=== PATIENT | female | born 1980 | race Caucasian/White ===

== ENCOUNTER → 2021-04-04 16:56 | Outpatient (CLI) | payer OTHER, SELFPAY | PROVIDERS: PCP Family Medicine; Visit Provider Nurse Practitioner | DX: Z20.822 Contact with and (suspected) exposure to COVID-19 (principal) | CPT/HCPCS: C9803; U0003; U0005 ==

== ENCOUNTER 2021-04-20 16:13 | Emergency (ER) | payer SELFPAY ==
[2021-04-20 16:15] VITALS: BP 138/79; PULSE 88; RESP 18; TEMP 36.8; O2SAT 97; BMI 30.5
--- NOTE | 2021-04-20 16:36 | HMH.EDUTC ---
[facility] [place] Clinical Impression: URI (upper respiratory infection) Qualifiers: URI type: unspecified URI Qualified Code(s): J06.9 - Acute upper respiratory infection, unspecified Disposition: Home, Self-Care Condition on Discharge: Good Instructions: Sore Throat, DI for Sinusitis, DI for COVID-19 (Suspected or Confirmed ), Preventing the Spread of Coronavirus Discharge Instructions Additional Instructions: *Monitor Temp, Over the counter Motrin or Tylenol as directed/as needed Tylenol every 4 hours and Motrin every 6 hours (as long as your family doctor has told you that you can take it) for fever or pain. and straight to ER if unable to lower temp less than 101.0 after medication given *Warm salt water gargles may help to soothe the throat *Throat Lozenges *Warm fluids like tea with honey may help to soothe the throat *Sleep elevated *Humidifier/Vaporizer *Flonase 2 sprays in each nostril daily but be aware that it may take 2-3 days before you notice improvement Take your medication as prescribed Return if needed Follow up IMMEDIATELY for new or worsening symptoms or no Noticeable improvement over the next 48-72 hours. 911 for difficulty breathing or swallowing You were tested for today for COVID19 your test result should be back in the next 24-48 hours, you was given handout to log on [facility] portal to get your results if you have issues logging on you can call [facility] You was given a handout with instructions for Self Quarantine and Self isolation for while you wait on test results and what to do if they are positive If you are positive the Health Dept will be contacting you also Make sure to take your Vitamins Vit. C Vit D and Zinc if you can take them Prescriptions: methylPREDNISolone [Medrol 4mg tab] 4 mg PO DIRECTED #21 tab Transmission Status: Pending to [facility] # Azithromycin [Z-Chiki 250mg Tab*] 250 mg PO UD DOSE PK #6 tab Transmission Status: Pending to [facility] # Referrals: Ranjit Chester MD [Primary Care Provider] - As needed Forms: Work/School Release Time of Disposition: 16:41 Medical Decision Making - Zachary Inquiry Pt receiving controlled substance: No Zachary was queried for this patient: No Vital Signs: 04/20/21 16:15 Temperature 98.2 F Temperature Source Oral Pulse Rate [Right Brachial] 88 Respiratory Rate 18 Blood Pressure [Right Arm] 138/79 Blood Pressure Mean [Right Arm] 98 Blood Pressure Source [Right Arm] Automatic Cuff Blood Pressure Position [Right Arm] Sitting 02 Sat by Pulse Oximetry 97 Oxygen Delivery Method Room Air Orders (Tests/Meds): ORDERS Category Date Time Status Covid-19 Nasal PCR ([facility]) Routine Lab 04/20/21 16:34 Ordered [facility] [place] - General Stated complaint: Allergies, covid swab Time Seen by Provider: 04/20/21 16:36 Mode of Arrival: Ambulatory Source of Information: Patient Limitations: No Limitations Description of Symptoms (Recalled from Triage Doc. by RN): PATIENT C/O COUGH AND CONGESTION X 3 DAYS. DAUGHTER RECENTLY TESTED POSITIVE FOR COVID HEENT Symptoms (Recalled from RN notes): Yes Resp Symptoms (Recalled from RN notes): Yes Skin Symptoms (Recalled from RN notes): No MS Symptoms (Recalled from RN notes): No Functional Status (Recalled from RN notes): WNL - History of Present Illness Provider Complaint: Patient states that she has been having cough and congestion along with sinus congestion and pressure for about 4-5 days States that daughter recently tested positive for COVID and they live in the same house but she has not been around her States that today she wasnt feeling any better so [facility] came in to get checked - Related Data Previous Rx's Medication Instructions Recorded Azithromycin [Z-Chiki 250mg Tab*] 250 mg PO UD DOSE PK #6 tab 04/20/21 methylPREDNISolone [Medrol 4mg 4 mg PO DIRECTED #21 tab 04/20/21 tab] Allergies Allergy/AdvReac Type Severity Reaction Status Date / Time
[2021-04-20 16:52] VITALS: BP 138/79; PULSE 88; RESP 18; TEMP 36.8; O2SAT 97
== END 2021-04-20 16:53 | disposition home or self-care (01) ==
PROVIDERS: Emergency Provider Nurse Practitioner; PCP Family Medicine
DX: J06.9 Acute upper respiratory infection, unspecified (principal); Z20.822 Contact with and (suspected) exposure to COVID-19
CPT/HCPCS: 99202; C9803; G0463; U0003; U0005

== ENCOUNTER 2023-03-26 06:03 | Day surgery (SDC) | payer BC, SELFPAY ==
[2023-03-21 15:27] VITALS: BMI 30.2
[2023-03-26] VITALS (10 sets, daily range): BP systolic 109–126; BP diastolic 57–88; PULSE 67–84; RESP 14–18; TEMP 36.6–43; O2SAT 99–100
[2023-03-26 06:48] LABS: Basophils % 0.2 % (0.1-2.0); Eosinophils # 0.1 K/mm3 (0.0-0.4); Eosinophils % 1.6 % (0.1-12.0); Hematocrit 45.2 % (37.0-47.0); Hemoglobin 14.1 g/dL (12.2-16.2); Lymphocytes # 1.6 K/mm3 (0.7-4.5); Lymphocytes % 20.2 % (10-50); Mean Corpuscular HGB Conc 31.2 g/dL (31.8-35.4); Mean Corpuscular Hemoglobin 29.1 pg (27.0-31.2); Mean Corpuscular Volume 93.5 fl (81-99); Mean Platelet Volume 8.1 fl (7.4-10.4); Monocytes # 0.5 K/mm3 (0.1-1.0); Monocytes % 6.1 % (1.7-9.3); Neutrophils # 5.8 K/mm3 (1.8-7.8); Neutrophils % 71.9 % (37.0-80.0); Platelet Count 255 K/mm3 (142-424); Red Blood Count 4.84 M/mm3 (4.20-5.40); Red Cell Distribution Width 13.6 % (11.5-17.5); Urine Pregnancy, HCG Qual. Negative (Negative)
--- NOTE | 2023-03-26 06:59 | EXP.ANES.CKL ---
[facility] Disclaimer: The information contained in this section may have been updated after the patient was seen, as this information can be updated by other users. Medical History History of breast cancer Surgical History History of bilateral mastectomy History of placement of ear tubes History of tonsillectomy and adenoidectomy History of tubal ligation Family History (Updated 03/26/23 @ 06:36 by Samantha Crawley RN) Other Breast cancer Social History (Updated 03/26/23 @ 06:37 by Samantha Crawley RN) Smoking Status: Never smoker alcohol intake: never substance use type: denies use current occupational status: employed Travel in the last 8 weeks: None [facility] Anesthesia Checklist Patient Identification Patient Identification: Arm Band and Family Structural Data Admitted From: Home Planned Operative Procedure/s: Excision lipoma right shoulder Consent for Planned Operative Procedure(s) Verified: Yes Verified Documents: Surgical Consent and History and Physical NPO Status Verified Time NPO: 00:00 Additional verifications Patient : No Anesthesia Reactions: No Hx Blood Transfusions: No Blood Transfusion Reaction: No Cephalosporin Allergy: No Previous Colonoscopy: No Airway Assessment Mallampati Score:: Class I C-Spine Mobility Assessed: Yes TMJ Mobility Assessed: Yes Dentition: Good Dentition Neurological Assessment Level of Consciousness: Awake, Alert, Appropriate and Follows Commands Anesthesia Plan Anesthesia Risk discussed: Yes ASA Class: I Anesthesia Type: General Preoperative Comments Pre-Operative Comments: Bilateral mastectomy.
[2023-03-26 07:00] LABS: Anion Gap 13.8 mEq/L (5-15); Blood Urea Nitrogen 22 mg/dl (7-17); Calcium 8.8 mg/dl (8.4-10.2); Carbon Dioxide 24 mmol/L (22.0-30.0); Chloride 108 mmol/L (98-107); Creatinine Clearance Estimated 104 mL/min (50-200); Estimated Glomerular Filt Rate 68 ml/min (>60); GFR (African American) 82 ML/MIN (>60); Glucose 102 mg/dl (74-100); Potassium 3.8 mmoL/L (3.5-5.1); Sodium 142 mmol/L (136-145)
--- NOTE | 2023-03-26 07:46 | EXP.OP.NOTE ---
Date of procedure: 03/26/23 Pre-op Diagnosis:: Right shoulder lipoma Post-op Diagnosis:: Same Procedure performed:: Excision of lipoma posterior right shoulder (excisional length approximately 3 cm) with intermediate complexity closure Surgeon:: Chad Goodwin MD Anesthesia: LMA Estimated blood loss (mL): 5 Clinical Note:: Patient is a pleasant 42-year-old female referred for lump on right shoulder . She had noticed a knot on the right posterior deltoid area several months ago. She denies pain. She is concerned about this as there is a family history of cancers. In the preoperative area the patient did ask about possibility of having axillary adenopathy from this lesion. It was felt rather unlikely. Examination in the preoperative area did reveal what appeared to be palpable tender lymph node in the right axilla. Patient had undergone bilateral mastectomies with reconstruction for breast cancer in 2009 at [facility]. It was felt unlikely that this adenopathy was secondary to this apparent benign lipoma. Plan will be for imaging with ultrasound. Operative findings:: Consistent with subcutaneous lobulated benign lipoma Operative note:: Consent was obtained and patient was taken to the operating room. She was positioned in supine position. General anesthesia was induced via LMA. She was positioned in left lateral position. Area was prepped and draped in the standard surgical fashion. Lesion was marked with a skin marker. Curvilinear incision was made overlying the palpable lesion along skin lines. Dissection was carried down through the superficial subcutaneous tissues and well-circumscribed somewhat lobulated lipomatous lesion was encountered. This was dissected free from surrounding structures using blunt dissection, Metzenbaum dissection, and some use of electrocautery. It was sent off as specimen. Hemostasis was achieved. Local anesthetic was infiltrated. Deep dermal tissues were reapproximated with interrupted 3-0 Vicryl. Skin was closed with 4-0 Monocryl in a subcuticular fashion. Steri-Strips and dressings were applied. Condition: stable Disposition: PACU Complications:: None immediately apparent
--- NOTE | 2023-03-26 07:55 | P.PNANES_ITS ---
[facility] Anesthesia Record Part I Anesthesia Record I Intake, IV Amount: 300 Hydration: Adequate Estimated blood loss (mL): 2 Urine output (mL): 0 Blood Products used (#): none Blood Pressure: 109/79 SaO2: 99 Pulse Rate: 82 Airway Patency: Patent Respiratory Rate: 16 Temperature: 97.9 F Patient is:: Drowsy and Stable Stable to PACU at:: 07:50
--- NOTE | 2023-03-26 08:10 | SUR.PHASEI ---
Pt sitting up eating ice chips at this time. Tolerating well.
--- NOTE | 2023-03-26 19:38 | P.PNANES_ITS ---
[facility] Anesthesia Record Part II Anesthesia Record Part II Discharge Time: 08:20 Destination: Surgical Day Care (OP Surgery) PACU nurse assessment reviewed?: Yes Patient Condition:: Good Anesthesia Complications:: None Swallowing reflex intact?: Yes Airway Patency: Patent Cyanosis?: No Blood Pressure: 126/85 SaO2: 100 Respiratory Rate: 18 Pulse Rate: 67 Temperature: 97.8 F Mental Status: Alert & Oriented Pain level:: 0 Nausea and/or vomitting:: None Intake, IV Amount: 0 Hydration: Adequate
== END 2023-03-26 08:40 | disposition home or self-care (01) ==
PROVIDERS: PCP Family Medicine; Visit Provider Surgery
PROC: (CPT 11403; principal; 2023-03-26 07:30)
DX: D17.21 Benign lipomatous neoplasm of skin and subcutaneous tissue of right arm (principal); Z85.3 Personal history of malignant neoplasm of breast
CPT/HCPCS: 11403; 12032; 80048; 81025; 85025; 96374; J2405